=== PATIENT | female | born 1985 | race Caucasian/White ===

== ENCOUNTER 2025-01-15 18:02 | Emergency (ER) | payer OTHER, SELFPAY ==
[2025-01-15 18:05] VITALS: BMI 19.8
[2025-01-15 18:13] VITALS: BP 104/62; PULSE 59; RESP 18; TEMP 36.7; O2SAT 99
--- NOTE | 2025-01-15 20:07 | PD.EDADULT ---
ED General RME/HPI General Chief complaint: General Adult/Misc Complain Stated complaint: UTI; MEDS NOT HELPING Time Seen by Provider: 01/15/25 19:30 Arrival date/time: 01/15/25 18:02 RME / HPI RME / HPI narrative: 39-year-old female, visiting here from the presents to the ED with a complaint of dysuria and frequency. Patient states she was seen 4 days ago at [facility] and diagnosed with a UTI and gallstones. She was placed on Keflex for her UTI but she feels it is not working. She denies any fever or chills, nausea or vomiting. Related Data Previous Rx's ?Medication ?Instructions ?Recorded phenazopyridine 200 mg tablet 200 mg PO TID 6 doses #6 tabs 01/15/25 (Pyridium) Allergies Allergy/AdvReac Type Severity Reaction Status Date / Time No Known Allergies Allergy Verified 01/15/25 18:08 Review of Systems Review of Systems Systems Reviewed: All systems reviewed, normal except as documented Past Medical History Social History SMOKING STATUS: Never smoker ED Exam Narrative Physical exam: A&O, afebrile and non-toxic appearing, very pleasant 39-year-old female, no acute distress. Lung are clear, RRR, Abdomen is soft, nontender, and non-distended. Positive bilateral CVA tenderness. Moves all extremities well. Course Course Course Narrative: Urinalysis obtained which reveals: Quality Measures none Orders Category Date Time Status Urinalysis, C/S if Indicated Stat Lab 01/15/25 22:00 Completed Phenazopyridine HCl [Pyridium] Med 01/15/25 22:52 Once 100 mg PO X1 ONE Vital Signs Vital signs: Vital Signs Temperature 98.1 F 01/15/25 18:13 Pulse Rate 59 L 01/15/25 18:13 Respiratory Rate 18 01/15/25 18:13 Blood Pressure 104/62 01/15/25 18:13 Pulse Oximetry (%) 99 01/15/25 18:13 Oxygen Delivery Method Room Air 01/15/25 18:13 Discharge Plan Plan Patient Disposition: HOME (Self Care) Discharge Disposition comment: Stable Prescriptions/Referrals Prescriptions/Med Rec: New phenazopyridine [Pyridium] 200 mg tablet 200 mg PO TID Qty: 6 0RF Referrals: No Primary/Family,Physician [Primary Care Provider] - In 1 week Problem List Clinical Impression: Dysuria Patient/Caregiver Discharge Instructions Education Materials: ED Dysuria, Uncertain Cause (Adult) Additional Instructions: Your urine test was completely negative for any bacteria, white blood cells, or infection. Use the Pyridium as needed for dysuria. Follow-up with your primary care physician in 24 to 48 hours. Return to the ED for any new or worsening symptoms. Print Language: Mongolian Stand Alone Forms: Izzy Award Info., Patient Portal Info Letter PA/FUEL INJECTION SERVICER Supervising Physician PA/ORALIA Supervising Physician: Dr Wells
[2025-01-15 22:09] LABS: Collection Type, Urine Clean Catch
[2025-01-15 22:15] LABS: Bilirubin,Urine Negative (Negative); Blood,Urine Negative (Negative); Clarity,Urine Clear (Clear/Hazy); Color,Urine Colorless (Lt Yel-Yel); Culture Indicated,Urine Not Indicated; Glucose, Urine Negative (Negative); Ketones,Urine Negative (Negative); Leukocyte Esterase,Urine Negative (Negative); Nitrite,Urine Negative (Negative); PH,Urine 7.0 (5.0-7.0); Protein,Urine Negative (Neg - Trace); RBC,Urine 1 /hpf (0-3); Specific Gravity,Urine 1.006 (1.001-1.035); Squamous Epithelial Cell,Urine < 1 /hpf (0-5); Urobilinogen,Urine Negative mg/dL (0.0-1.0); WBC,Urine < 1 /hpf (0-5)
[2025-01-15] MEDS: PHENAZOPYRIDINE HCL 100 MG TABLET PO (23:22)
[2025-01-15 23:23] VITALS: BP 125/64; PULSE 86; RESP 18; TEMP 36.7; O2SAT 99
== END 2025-01-15 23:24 | disposition home or self-care (01) ==
PROVIDERS: Physician Assistant; Emergency Provider Emergency Medicine
DX: R30.0 Dysuria (principal)
CPT/HCPCS: 81001; 99282; A9270